=== PATIENT | female | born 1935 | race Caucasian/White ===

== ENCOUNTER → 2018-05-17 | Outpatient (CLI) | payer OTHER, MEDICARE ==
[~2018-05-17] VITALS: Ht 167.6 cm; Wt 50.8 kg
[~2018-05-17] MED LIST: AMITIZA 24 MCG24 MC1 PO; ASPIR 8181 MG PO; CENTRUM SILVER1 EAC4 PO; FLOMAX0.4 MG PO; GAS-X180 MG PO; HYDRALAZINE 5050 MG PO; MIRALAX17 GM PO; PROLIA60 MG/1 ML SUBQ; SPIRONOLACTONE25 M1 PO; STOOL SOFTENER100 MG PO; SYNTHROID25 MC1 PO; VITAMIN B-12500 MCG PO; XANAX 0.25 MG0.25 MG PO; ZANTAC 150MG T150 MG PO
--- NOTE | ~2018-05-17 | PATH ---
[facility] [address] [place] [address] PATHOLOGY RPT PROCEDURE Name: MERVIN MENDEZ Room #: REG [facility]..#: [id number] Admission: 05/17/18 Date of : 39 Discharge: Report #: [id number] Path Case #: [id number] [facility] Accession Number: [id number] . 01 Material submitted: . PART A: RANDOM BX OF SIGMOID COLON H/O ULCERATIVE COLITIS PART B: RANDOM BX OF RECTUM H/O ULCERATIVE COLITIS . 01 Clinical history: . Pre-OP DX: Hx of ulcerative colitis Post-OP DX: Ulcerative colitis . 02 Diagnosis: A. Large intestinal mucosa, random sigmoid history of ulcerative colitis, endoscopic biopsy: - Mild active colitis with subtle architectural abnormalities, compatible with the history. - Negative for dysplasia. . B. Large intestinal mucosa, random rectum, history of ulcerative colitis, endoscopic biopsy: - Mild active colitis with subtle architectural abnormalities, compatible with the history. - Negative for dysplasia. (IUV:camilo; 05/18/2018) QMS/05/18/2018 . 02 Electronically signed: . Alberta Lopez MD, Pathologist NPI- [id number] . 01 Gross description: . A. Received in formalin labeled "Mervin Mendez, random BX of sigmoid colon, history of ulcerative colitis," are 5 segments of negrete soft tissue measuring 0.9 x 0.8 x 0.2 cm in aggregate dimensions and ranging from 0.2 to 0.5 cm in maximum dimension. The specimen is submitted entirely in cassette A1. . B. Received in formalin labeled "Mervin Mendez, BX of rectum, history of ulcerative colitis," and additionally labeled on the requisition as "random," are 5 segments of negrete soft tissue measuring 1.0 x 0.9 x 0.3 cm in aggregate dimensions and ranging from 0.2 to 0.3 cm in maximum dimension. The specimen is submitted entirely in cassette B1. (TSD; 05/17/2018) TOB/TOB . 02 Pathologist provided ICD-10: [address] [address] PATHOLOGY RPT PROCEDURE Name: MERVIN MENDEZ S Room #: REG CLLena Schwartz#: [id number] Admission: 05/17/18 Date of : 39 Discharge: Report #: [id number] Path Case #: [id number] K51.90 . 02 CPT . 402690, [id number] Specimen Comment: A courtesy copy of this report has been sent to Specimen Comment: [phone], . Specimen Comment: Report sent to / DR LAU Specimen Comment: A duplicate report has been generated due to demographic updates. Performed at: [address], [place] [id number] MD Dejuan Dixon MD Phone: [phone] Performed at: [address] [id number] MD Alberta Lopez MD Phone: [phone]
--- NOTE | ~2018-05-17 | P ---
[facility] [place] [address] PROCEDURE REPORT Name: MERVIN OTTO Room #: REG [facility]#: [id number] Admission: 05/17/18 Attend Phys: Joseph Mcleod Discharge: Date of : 39 Report #: [id number] THIS REPORT FOR: //name// CC: Joseph Vega MD DATE OF SERVICE: 05/17/2018 PROCEDURE PERFORMED: Flexible sigmoidoscopy with biopsies. HISTORY OF PRESENT ILLNESS: The patient is an 82-year-old female with a history of ulcerative colitis diagnosed many years ago, underwent a subtotal colectomy in 1963. She is not currently on any medications. She does have a history of chronic constipation and is currently taking Amitiza as well as MiraLax. She denies any diarrhea or blood in her stools. Last flexible sigmoidoscopy with biopsies was 2 years ago. No active inflammation was noted. She has had a previous polyp removed with tattoo site in the distal remaining sigmoid colon. DESCRIPTION OF PROCEDURE: The risks and benefits of the procedure were explained to the patient, those risks including but not limited to bleeding, perforation, the risk of sedation. She understood these risks and gave informed consent. Sedation was given using propofol per Anesthesia. Next, a digital rectal exam was initially performed, which was normal. Next, using a standard Olympus colonoscope, the scope was placed in the patient's anus and advanced under direct vision through the rectum, distal sigmoid colon, through the surgical anastomosis into the distal ileum. The ileum was normal in appearance. The surgical anastomosis was well healed and widely patent. The remaining distal sigmoid colon and rectum were normal. No evidence of colitis. The previous tattoo polypectomy site was well healed. No evidence of polyp tissue. Random biopsies were obtained, both in the sigmoid colon and in the rectum. On retroflexion, no abnormalities were noted. The scope was then withdrawn and the procedure terminated. The patient tolerated the procedure well. IMPRESSION: 1. Surgical changes of subtotal colectomy noted. No active colitis in the remaining distal sigmoid and rectum. 2. Surgical anastomosis well healed and widely patent. RECOMMENDATIONS: 1. Await biopsy results. 2. Consider repeat flexible sigmoidoscopy in [address] [address] PROCEDURE REPORT Name: MERVIN OTTO Room #: REG Lena Schwartz#: [id number] Admission: 05/17/18 Attend Phys: Joseph Mcleod Discharge: Date of : 39 Report #: [id number] Thank you for allowing me to participate in her care. <ELECTRONICALLY SIGNED> By: Joseph Strong MD 05/19/18 0808 1102 1150 Joseph Strong MD /nt
== END | disposition home or self-care (01) ==
LOC: GI 08:32
DX: K52.9 Noninfective gastroenteritis and colitis, unspecified (principal); I10 Essential (primary) hypertension; F41.9 Anxiety disorder, unspecified; K21.9 Gastro-esophageal reflux disease without esophagitis; Z85.828 Personal history of other malignant neoplasm of skin; Z87.19 Personal history of other diseases of the digestive system; Z90.49 Acquired absence of other specified parts of digestive tract; Z86.010 Personal history of colon polyps; Z88.1 Allergy status to other antibiotic agents; Z88.2 Allergy status to sulfonamides; Z88.8 Allergy status to other drugs, medicaments and biological substances; Z79.899 Other long term (current) drug therapy; Z79.82 Long term (current) use of aspirin; Z90.89 Acquired absence of other organs; Z98.890 Other specified postprocedural states; Z98.0 Intestinal bypass and anastomosis status
CPT/HCPCS: 62110; 62900

== ENCOUNTER → 2020-05-23 | Outpatient (CLI) | payer OTHER, MEDICARE ==
[~2020-05-23] MED LIST changes: +FAMOTIDINE20 MG PO; +LASIX 40 MG TAB40 MG PO; +METOPROLOL SUCC25 M1 PO
== END ==
LOC: LAB 09:04
PROVIDERS: ATTEND Specialist
DX: Z01.812 Encounter for preprocedural laboratory examination (principal); Z20.828 Contact with and (suspected) exposure to other viral communicable diseases

== ENCOUNTER → 2020-05-28 | Outpatient (CLI) | payer OTHER, MEDICARE ==
[~2020-05-28] VITALS: Ht 170.2 cm; Wt 51.3 kg
--- NOTE | 2020-05-30 18:06 | PATH ---
[facility] [place] [address] PATHOLOGY RPT PROCEDURE Name: MERVIN MENDEZ Room #: REG [facility] M..#: [id number] Admission: 05/28/20 Date of : 39 Discharge: Report #: [id number] Path Case #: [id number] [facility] Accession Number: [id number] . 01 Material submitted: . PART A: colon - BIOPSY RANDOM DISTAL SIGMOID. Modifiers: distal, sigmoid PART B: rectum - BIOPSY RECTUM . 01 Clinical history: . HX OF POLYPS, ULCERATIVE COLITIS, CONSTIPATION . 02 Diagnosis: A. Large intestine mucosa, random distal sigmoid, endoscopic biopsy: - Quiescent colitis, history of ulcerative colitis. - Negative for dysplasia or malignancy. . B. Large intestine mucosa, rectum, endoscopic biopsy: - Quiescent colitis, history of ulcerative colitis. - Negative for dysplasia or malignancy. . (IUV:artificial flower maker; 05/30/2020) MBR 05/30/2020 1305 Local . 02 Comment: Examination shows nonspecific reactive changes. Active colitis is not identified. Architectural abnormalities, fibrotic changes within lamina propria, dysplasia or malignancy are not identified. (IUV:artificial flower maker; 05/30/2020) . 02 Electronically signed: . Alberta Lopez MD, Pathologist NPI- [id number] . 01 Gross description: . A. The specimen is received in formalin, labeled "Mervin Mendez, random BX distal sigmoid" and consists of 3 fragments of pink-negrete tissue measuring between 0.3 x 0.2 cm and 0.5 x 0.2 cm which are entirely submitted in A1. . B. The specimen is received in formalin, labeled "Mervin Mendez, BX rectum" and consists of 4 fragments of pink-negrete tissue measuring between 0.1 x 0.1 cm and 0.3 x 0.3 cm which are entirely submitted in B1. (SDY; 05/29/2020) SYU/SYU 05/29/2020 1602 Local . 02 Pathologist provided ICD-10: K52.9, Z86.010, K59.00 . [address] [address] PATHOLOGY RPT PROCEDURE Name: MERVIN MENDEZ S Room #: REG Lena Schwartz#: [id number] Admission: 05/28/20 Date of : 39 Discharge: Report #: [id number] Path Case #: [id number] [facility] . [id number], [id number] Specimen Comment: A courtesy copy of this report has been sent to [phone] Specimen Comment: [phone] Specimen Comment: Report sent to / DR LAU Performed at: [address], [place] [id number] MD Maxi Vale MD Phone: [phone] Performed at: [address] [id number] MD Alberta Lopez MD Phone: [phone]
--- NOTE | 2020-05-31 10:50 | P ---
[facility] [place] [address] PROCEDURE REPORT Name: MERVIN OTTO Room #: REG [facility]#: [id number] Admission: 05/28/20 Attend Phys: Joseph Mcleod Discharge: Date of : 39 Report #: [id number] THIS REPORT FOR: cc: Matilda Vega MD, Kristin E. MD McElhinney, Christian C. MD ~ DATE OF SERVICE: 05/28/2020 PROCEDURE PERFORMED: Flexible sigmoidoscopy with biopsies. HISTORY OF PRESENT ILLNESS: The patient is an 84-year-old female with history of ulcerative colitis, status post subtotal colectomy with a surgical anastomosis in the rectosigmoid colon. She is here for a routine 2-year followup. She is not on mesalamine at this time. She denies any diarrhea or blood in her stools, in fact has had problems with constipation, recently has been on Amitiza and also taking MiraLax. She has a history of hemorrhoids. Last flexible sigmoidoscopy was in 2018. Biopsies were essentially negative. DESCRIPTION OF PROCEDURE: The risks and benefits of the procedure were explained to the patient, those risks including but not limited to bleeding, perforation and the risk of sedation. She understood these risks and gave informed consent. Sedation was given using propofol per anesthesia. Next, a digital rectal exam showed external hemorrhoid, otherwise normal. Next, using a pediatric Olympus colonoscope, the scope was placed in the patient's anus and advanced under direct vision in the rectum through the rectosigmoid area, which the surgical anastomosis was once again noted. I was able to advance the scope easily into the ileum approximately 40 cm. The ileum was completely normal in appearance other than dilated. The surgical anastomosis again well-healed and widely patent. The remaining distal sigmoid colon appeared normal. Random biopsies were obtained. The previous polypectomy site with tattoo was again noted. No evidence of new polyp tissue. The rectal mucosa was normal. Random biopsies also obtained. No evidence of obvious colitis. Small internal hemorrhoids were noted as well as an external hemorrhoid. No evidence of bleeding. The scope was then withdrawn and the procedure terminated. The patient tolerated the procedure well. IMPRESSION: 1. Surgical anastomosis again noted in the rectosigmoid colon. 2. No evidence of active colitis. 3. Internal and external hemorrhoids. RECOMMENDATIONS: 1. Await biopsy results. 2. We discussed continuing MiraLax and Amitiza. Explained to the patient she can take 2-3 doses of MiraLax at once on a daily basis. [address] [address] PROCEDURE REPORT Name: MERVIN OTTO Room #: REG Lena Schwartz#: [id number] Admission: 05/28/20 Attend Phys: Joseph Mcleod Discharge: Date of : 39 Report #: [id number] Thank you for allowing me to participate in her care. <ELECTRONICALLY SIGNED> By: Joseph Strong MD 05/31/20 1050 1127 1227 Joseph Strong MD /nt
== END | disposition home or self-care (01) ==
LOC: GI 09:04
PROVIDERS: ATTEND Specialist
DX: K59.00 Constipation, unspecified (principal); K64.8 Other hemorrhoids; K52.9 Noninfective gastroenteritis and colitis, unspecified; K64.4 Residual hemorrhoidal skin tags; Z98.890 Other specified postprocedural states; Z79.899 Other long term (current) drug therapy; Z87.19 Personal history of other diseases of the digestive system; Z86.010 Personal history of colon polyps; Z90.49 Acquired absence of other specified parts of digestive tract; Z88.2 Allergy status to sulfonamides; Z88.8 Allergy status to other drugs, medicaments and biological substances
CPT/HCPCS: 62110; 62900